=== PATIENT | male | born 1980 | race Hispanic/Latino ===

== ENCOUNTER 2017-02-08 00:13 | Emergency (ER) | payer OTHER ==
[~2017-02-08] VITALS: Ht 172.7 cm; Wt 100.0 kg
[~2017-02-08 00:13] MED LIST: ACCOLATE20 MG PO; COLACE100 MG PO; EQ ALLERGY REL180 MG PO; FEXOFENADINE180 MG PO; FLUTICASONE0.005 % EX; FLUTICASONE50 MCG; LORTAB 7.57.5 MG PO; MAG CITRATE PO; NAPROSYN250 MG PO; PROAIR HFA IN
[2017-02-08 01:30] LABS: HEMATOCRIT 49.1 % (39.0-50.0); HEMOGLOBIN 16.5 g/dl (14.0-18.0); IMMATURE GRANULOCYTES 1.6 % (0.0-1.0); MEAN CORPUSCULAR HGB 27.2 pG CALC (26.0-32.0); MEAN CORPUSCULAR HGB CONC 33.6 g/L CALC (32.0-36.0); NEUT# 8.42 thou/uL (1.82-7.42); RED BLOOD COUNT 6.06 mill/uL (4.70-6.10); RED CELL DISTRI WIDTH 12.9 % (11.5-15.5); URINE BILIRUBIN - DIPSTICK NEGATIVE (NEGATIVE); URINE BLOOD DIPSTICK NEGATIVE (NEGATIVE); URINE CLARITY CLEAR; URINE COLOR YELLOW; URINE GLUCOSE - DIPSTICK NEGATIVE (NEGATIVE); URINE KETONE NEGATIVE (NEGATIVE); URINE LEUK ESTERASE NEGATIVE (NEGATIVE); URINE NITRITE - DIPSTICK NEGATIVE (Negative); URINE PROTEIN - DIPSTICK NEGATIVE (NEG-TRACE); URINE SPECIFIC GRAVITY <=1.005; URINE UROBILINOGEN - DIPSTICK 0.2 E.U./dL (0.2)
[2017-02-08 01:36] LABS: ALBUMIN 5.4 g/dL (3.2-5.0); ALKALINE PHOSPHATASE 115 u/l (38-126); AMYLASE 102 u/l (30-110); ANION GAP 21 (6-22 (CALC)); BILIRUBIN, TOTAL 0.6 mg/dL (0.0-1.4); BUN 13 mg/dL (9-20); BUN/CREATININE RATIO 14 (12-20 (CALC)); CALCIUM 10.5 mg/dL (8.4-10.2); CARBON DIOXIDE 23 mmol/l (22-30); CHLORIDE 105 mmol/l (95-108); CREATININE 0.9 mg/dL (0.7-1.3); GFR > 60 ML/MIN (>=60 (CALC)); GFR FOR AFR.AMER. > 60 ML/MIN (>=60 (CALC)); GLUCOSE 113 mg/dL (75-110); LIPASE 135 u/l (23-300); POTASSIUM 3.6 mmol/l (3.5-5.1); SGOT/AST 47 u/l (17-59); SGPT/ALT 58 u/l (21-72); SODIUM 145 mmol/l (137-146); TOTAL PROTEIN 8.8 g/dL (6.3-8.2)
[2017-02-08] MEDS ORDERED: FIORICET PO (02:31)
[2017-02-08] MEDS ORDERED: ZOFRAN ODT4 MG PO (02:31)
[2017-02-08 03:02] VITALS: BP 127/89
== END 2017-02-08 02:57 | disposition home or self-care (01) | DRG 103 ==
LOC: ED 00:13
PROVIDERS: Emergency Medicine
DX: R51 Headache (principal); F43.9 Reaction to severe stress, unspecified; K59.00 Constipation, unspecified

== ENCOUNTER 2017-02-23 12:50 | Emergency (ER) | payer OTHER ==
[~2017-02-23] VITALS: Ht 172.7 cm; Wt 92.8 kg
[~2017-02-23 12:50] MED LIST changes: +FIORICET PO; +ZOFRAN ODT4 MG PO
[2017-02-23 13:21] LABS: HEMATOCRIT 46.6 % (39.0-50.0); IMMATURE GRANULOCYTES 0.6 % (0.0-1.0); MEAN CELL VOLUME 80.5 fL CALC (80.0-100.0); MEAN CORPUSCULAR HGB 27.6 pG CALC (26.0-32.0); MEAN CORPUSCULAR HGB CONC 34.3 g/L CALC (32.0-36.0); NEUT# 6.35 thou/uL (1.82-7.42); RED BLOOD COUNT 5.79 mill/uL (4.70-6.10); RED CELL DISTRI WIDTH 12.8 % (11.5-15.5)
[2017-02-23 13:32] LABS: ALBUMIN 5.3 g/dL (3.2-5.0); ALKALINE PHOSPHATASE 91 u/l (38-126); ANION GAP 17 (6-22 (CALC)); BILIRUBIN, TOTAL 0.9 mg/dL (0.0-1.4); BUN 9 mg/dL (9-20); BUN/CREATININE RATIO 8 (12-20 (CALC)); CALCIUM 9.9 mg/dL (8.4-10.2); CARBON DIOXIDE 24 mmol/l (22-30); CHLORIDE 105 mmol/l (95-108); CREATININE 1.1 mg/dL (0.7-1.3); GFR > 60 ML/MIN (>=60 (CALC)); GFR FOR AFR.AMER. > 60 ML/MIN (>=60 (CALC)); GLUCOSE 115 mg/dL (75-110); POTASSIUM 3.9 mmol/l (3.5-5.1); SGOT/AST 37 u/l (17-59); SGPT/ALT 70 u/l (21-72); SODIUM 142 mmol/l (137-146); TOTAL PROTEIN 8.3 g/dL (6.3-8.2)
[2017-02-23 13:43] LABS: MYOGLOBIN 32 ng/mL (0 - 121)
[2017-02-23 14:42] VITALS: BP 137/86
[2017-02-23] MEDS ORDERED: EC-NAPROSYN500 MG PO (14:42)
== END 2017-02-23 14:57 | disposition home or self-care (01) | DRG 556 ==
LOC: ED 12:50
PROVIDERS: Emergency Medicine
DX: M79.1 Myalgia (principal); R94.31 Abnormal electrocardiogram [ECG] [EKG]; Z56.6 Other physical and mental strain related to work

== ENCOUNTER 2018-07-20 11:17 | Day surgery (SDC) | payer SELFPAY ==
[~2018-07-20] VITALS: Ht 172.7 cm; Wt 93.4 kg
[~2018-07-20 11:17] MED LIST changes: +AMLODIPINE5 MG PO; +CHANCA PIEDRA PO; +EC-NAPROSYN500 MG PO; +FLONASE AL50 MCG/ACT; +OPCON-A OU; +[UNRECOGNIZED DRUG - OTHER] PO; +[UNRECOGNIZED DRUG - OTHER] PO; +[UNRECOGNIZED DRUG - OTHER] PO
[2018-07-20] MEDS ORDERED: TAMSULOSIN0.4 MG PO (14:20)
[2018-07-20] MEDS ORDERED: PERCOCET1 TA4 PO (14:20)
[2018-07-20 14:59] VITALS: BP 120/79
== END 2018-07-20 15:29 | disposition home or self-care (01) | DRG 692 ==
LOC: ORM 11:17
PROVIDERS: ATTEND Urology
PROC: 0TF3XZZ Fragmentation in Right Kidney Pelvis, External Approach (ICD-10-PCS; principal; 2018-07-20)
DX: N20.0 Calculus of kidney (principal); I10 Essential (primary) hypertension
CPT/HCPCS: Q9967

== ENCOUNTER → 2018-10-31 | Outpatient (REF) | payer SELFPAY ==
[~2018-10-31] MED LIST changes: +PERCOCET1 TA4 PO; +TAMSULOSIN0.4 MG PO
[2018-10-31 09:39] LABS: HEMATOCRIT 48.4 % (39.0-50.0); HEMOGLOBIN 16.1 g/dl (14.0-18.0); MEAN CELL VOLUME 82.2 fL CALC (80.0-100.0); MEAN CORPUSCULAR HGB 27.3 pG CALC (26.0-32.0); MEAN CORPUSCULAR HGB CONC 33.3 g/L CALC (32.0-36.0); RED BLOOD COUNT 5.89 mill/uL (4.70-6.10); RED CELL DISTRI WIDTH 12.9 % (11.5-15.5)
[2018-10-31 10:38] LABS: ALBUMIN 5.1 g/dL (3.2-5.0); ALKALINE PHOSPHATASE 95 u/l (38-126); ANION GAP 16 (6-22 (CALC)); BILIRUBIN, TOTAL 0.6 mg/dL (0.0-1.4); BUN 13 mg/dL (9-20); BUN/CREATININE RATIO 13 (12-20 (CALC)); CALCULATED LDLCHOLESTEROL 132 mg/dL (62-129 (CALC)); CARBON DIOXIDE 26 mmol/l (22-30); CHLORIDE 105 mmol/l (95-108); CHOLESTEROL HDL RATIO 5.4 (<4.4 (CALC)); GFR > 60 ML/MIN (>=60 (CALC)); GFR FOR AFR.AMER. > 60 ML/MIN (>=60 (CALC)); HDL CHOLESTEROL 35 mg/dL (>=40); POTASSIUM 4.5 mmol/l (3.5-5.1); SGOT/AST 16 u/l (17-59); SODIUM 142 mmol/l (137-146); TOTAL CHOLESTEROL 189 mg/dl (0-199); TOTAL PROTEIN 7.6 g/dL (6.3-8.2); TOTAL TRIGLYCERIDES 111 mg/dl (30-149); VLDL CHOLESTROL 22 mg/dl (5-56 (CALC))
[2018-10-31 11:02] LABS: TSH, 3RD GENERATION 1.57 uIU/mL (0.47 - 4.68)
== END | disposition home or self-care (01) | DRG 305 ==
LOC: LAB 09:15
PROVIDERS: ATTEND Nurse Practitioner
DX: I10 Essential (primary) hypertension (principal)

== ENCOUNTER 2019-01-01 08:58 | Day surgery (SDC) | payer SELFPAY ==
[~2019-01-01 08:58] MED LIST changes: +AMOXICILLIN500 MG PO; +CLARITHROMYC500 MG PO; +METOCLOPRAMIDE10 M1; +OMEPRAZOLE20 M1 PO; +SUCRALFATE1 GM PO
[2019-01-01 11:19] VITALS: BP 122/71
== END 2019-01-01 11:30 | disposition home or self-care (01) | DRG 392 ==
LOC: ENDO 08:58 → ORM 12:00 → ENDO 12:00
PROVIDERS: ATTEND Surgery
PROC: 0DB78ZX Excision of Stomach, Pylorus, Via Natural or Artificial Opening Endoscopic, Diagnostic (ICD-10-PCS; principal; 2019-01-01)
DX: K29.50 Unspecified chronic gastritis without bleeding (principal); K21.9 Gastro-esophageal reflux disease without esophagitis; I10 Essential (primary) hypertension